=== PATIENT | female | born 1950 | race Caucasian/White ===

== ENCOUNTER 2022-05-27 13:41 | Inpatient (IN) | payer MEDICARE ==
[~2022-05-27] VITALS: Ht 172.7 cm; Wt 88.1 kg
[2022-05-27] MEDS ORDERED: ONDANSETRON HCL 4MG/2ML INJ IV STA (14:04)
[2022-05-27] MEDS ORDERED: MORPHINE SULFATE 4 MG/ML CPJ (NOT FOR IM USE) IV STA (14:04)
[2022-05-27 14:38] LABS: BASOPHILS % 0.5 % (0.0-2.0); HEMATOCRIT. 41.1 % (36.0-48.0); HEMOGLOBIN. 13.7 g/dL (12.0-16.0); LYMPHOCYTES % 26.9 % (20.0-50.0); MEAN CORPUSCULAR HEMOGLOBIN 31.7 pg (28.0-32.0); MEAN PLATELET VOLUME 8.3 fl (7.4-10.4); MONOCYTES % 9.5 % (2.0-8.0); NEUTROPHILS % 62.1 % (40.0-76.0); PLATELET 199 x1000/uL (130-400); RED BLOOD CELL COUNT 4.32 mill/uL (4.2-5.4); RED CELL DISTRIBUTION WIDTH 13.4 % (11.6-14.6)
[2022-05-27 14:47] LABS: CHLORIDE 104 mEq/L (98-107)
[2022-05-27] MEDS ORDERED: ENOXAPARIN 80MG/0.8ML SYR SUBCUT ONE (15:30)
[2022-05-27 16:09] LABS: PARTIAL THROMBOPLASTIN TIME 24.8 sec (23.4-31.0); PROTHROMBIN TIME 10.3 sec (9.6-11.0)
[2022-05-27] MEDS ORDERED: NALOXONE HCL 0.4MG/ML VIAL IV PRN (16:45)
[2022-05-27] MEDS ORDERED: CLONIDINE 0.1MG TABLET PO PRN (16:45)
[2022-05-27] MEDS ORDERED: IPRATROPIUM/ALBUTEROL 0.5-3(2.5)MG/3ML NEB HHN PRN (16:45)
[2022-05-27] MEDS ORDERED: ONDANSETRON HCL 4MG/2ML INJ IV PRN (16:45)
[2022-05-27] MEDS ORDERED: DIPHENHYDRAMINE 50MG/ML VIAL IV PRN (16:45)
[2022-05-27] MEDS ORDERED: ACETAMINOPHEN 325MG TABLET PO PRN (16:45)
[2022-05-27] MEDS ORDERED: IOHEXOL-350 100 ML BOTTLE ONE (18:12)
[2022-05-27] MEDS: ENOXAPARIN 80MG/0.8ML SYR SUBCUT SCH (18:43)
[2022-05-27 19:16] VITALS: BP 124/59
[2022-05-27 19:30] VITALS: BP 124/59
[2022-05-27] MEDS ORDERED: ATORVASTATIN CALCIUM 40MG TABLET PO SCH (21:00)
[2022-05-27 21:39] VITALS: BP 136/56
[2022-05-27] MEDS: ISOSORBIDE DINITRATE 10MG TABLET PO SCH (21:39)
[2022-05-27 23:00] VITALS: BP 117/83
[2022-05-28] VITALS (20 sets, daily range): BP systolic 105–148; BP diastolic 53–114
[2022-05-28] MEDS: MORPHINE SULFATE 2 MG/ML CPJ (NOT FOR IM USE) IV PRN ×2 (00:27→07:01)
[2022-05-28] MEDS ORDERED: FLUT1BLS INH (04:15)
[2022-05-28] MEDS ORDERED: LISI20TA31 PO (04:15)
[2022-05-28] MEDS ORDERED: DILT180C51 PO (04:15)
[2022-05-28] MEDS ORDERED: MONT-39 PO (04:15)
[2022-05-28] MEDS ORDERED: SIMV-46 PO (04:15)
[2022-05-28] MEDS ORDERED: BUPR-46 PO (04:15)
[2022-05-28] MEDS ORDERED: MAGN250T29 PO (04:18)
[2022-05-28] MEDS ORDERED: FEXO-25 PO (04:18)
[2022-05-28] MEDS ORDERED: OMEP10CA5 PO (04:18)
[2022-05-28] MEDS ORDERED: GUAI600T26 PO (04:18)
[2022-05-28] MEDS: ENOXAPARIN 80MG/0.8ML SYR SUBCUT SCH (05:00)
[2022-05-28] MEDS ORDERED: ONDANSETRON HCL 4MG/2ML INJ IV NR (07:30)
[2022-05-28] MEDS ORDERED: NITROGLYCERIN 0.4MG TABLET SL SL PRN (07:30)
[2022-05-28] MEDS: ISOSORBIDE DINITRATE 10MG TABLET PO SCH ×3 (07:51→17:52)
[2022-05-28 07:57] LABS: BASOPHILS % 0.1 % (0.0-2.0); EOSINOPHILS % 0.2 % (0.0-5.0); HEMATOCRIT. 40.8 % (36.0-48.0); HEMOGLOBIN. 13.2 g/dL (12.0-16.0); LYMPHOCYTES % 10.1 % (20.0-50.0); MEAN CORPUSCULAR HEMOGLOBIN 31.5 pg (28.0-32.0); MEAN CORPUSCULAR VOLUME 97.1 fL (81.0-99.0); MEAN PLATELET VOLUME 8.9 fl (7.4-10.4); MONOCYTES % 7.4 % (2.0-8.0); NEUTROPHILS % 82.2 % (40.0-76.0); PLATELET 168 x1000/uL (130-400); RED CELL DISTRIBUTION WIDTH 13.3 % (11.6-14.6)
[2022-05-28] MEDS ORDERED: DIPHENHYDRAMINE 50MG/ML VIAL IV NR (08:15)
[2022-05-28] MEDS ORDERED: PANTOPRAZOLE SODIUM 40 MG/VIAL IV NR (08:15)
[2022-05-28] MEDS ORDERED: VERAPAMIL HCL 2.5 MG/1 ML 2ML VIAL IV ONE (08:29)
[2022-05-28] MEDS ORDERED: LIDOCAINE HCL 1% 10 MG/ML 10ML VIAL ONE (08:29)
[2022-05-28] MEDS ORDERED: DIPHENHYDRAMINE 50MG/ML VIAL ONE (08:29)
[2022-05-28] MEDS ORDERED: HEPARIN 1000 UNITS/ML 10ML ONE (08:29)
[2022-05-28] MEDS ORDERED: MIDAZOLAM HCL 2 MG/2 ML VIAL ONE (08:29)
[2022-05-28] MEDS ORDERED: FENTANYL CITRATE/PF 50MCG/ML 2ML VIAL ONE (08:29)
[2022-05-28] MEDS ORDERED: IODIXANOL 320MG/ML 100 ML BOTTLE IV ONE (08:29)
[2022-05-28 08:30] LABS: CHLORIDE 106 mEq/L (98-107)
[2022-05-28] MEDS ORDERED: NICARDIPINE 100MCG/ML 10ML VIAL (CATH LAB) IV ONE (08:36)
[2022-05-28] MEDS ORDERED: NITROGLYCERIN 50MCG/ML 10ML VIAL (CATH LAB) IV ONE (08:36)
[2022-05-28] MEDS ORDERED: ATROPINE SULFATE 1MG/10ML SYR IV PRN (09:00)
[2022-05-28] MEDS ORDERED: ASPIRIN 81MG TABLET PO SCH (09:00)
[2022-05-28] MEDS ORDERED: LORAZEPAM 1MG TABLET PO PRN (10:15)
[2022-05-28] MEDS ORDERED: ASPIRIN 81MG TABLET PO NR (10:15)
[2022-05-28] MEDS: METOPROLOL SUCCINATE 50MG ER TABLET PO SCH (11:11)
[2022-05-28] MEDS: OMEPRAZOLE 20MG CAPSULE EXTENDED RELEASE PO SCH (13:52)
[2022-05-28] MEDS: LIDOCAINE 5% PATCH TOP SCH (17:53)
[2022-05-28] MEDS ORDERED: ATORVASTATIN CALCIUM 40MG TABLET PO SCH (21:00)
[2022-05-29] VITALS (8 sets, daily range): BP systolic 98–126; BP diastolic 52–73
[2022-05-29 07:08] LABS: BASOPHILS % 0.3 % (0.0-2.0); EOSINOPHILS % 0.4 % (0.0-5.0); HEMATOCRIT. 40.9 % (36.0-48.0); HEMOGLOBIN. 13.7 g/dL (12.0-16.0); LYMPHOCYTES % 17.2 % (20.0-50.0); MEAN CORPUSCULAR HEMOGLOBIN 31.9 pg (28.0-32.0); MEAN CORPUSCULAR VOLUME 95.2 fL (81.0-99.0); MEAN PLATELET VOLUME 9.7 fl (7.4-10.4); MONOCYTES % 13.7 % (2.0-8.0); NEUTROPHILS % 68.4 % (40.0-76.0); PLATELET 206 x1000/uL (130-400); RED BLOOD CELL COUNT 4.29 mill/uL (4.2-5.4); RED CELL DISTRIBUTION WIDTH 13.4 % (11.6-14.6)
[2022-05-29] MEDS ORDERED: OMEPRAZOLE 20MG CAPSULE EXTENDED RELEASE PO SCH (07:30)
[2022-05-29] MEDS: OMEPRAZOLE 20MG CAPSULE EXTENDED RELEASE PO SCH (08:15)
[2022-05-29] MEDS: ISOSORBIDE DINITRATE 10MG TABLET PO SCH ×2 (08:15→13:33)
[2022-05-29] MEDS: LIDOCAINE 5% PATCH TOP SCH (08:16)
[2022-05-29] MEDS: METOPROLOL SUCCINATE 50MG ER TABLET PO SCH (08:16)
[2022-05-29 08:33] LABS: CHLORIDE 103 mEq/L (98-107)
[2022-05-29 08:42] LABS: HDL CHOLESTEROL 60 mg/dL (40-59); LDL CHOLESTEROL 74 mg/dL (5-100)
[2022-05-29] MEDS ORDERED: ASPIRIN 325MG TABLET PO SCH (09:00)
[2022-05-29] MEDS ORDERED: LOSARTAN POTASSIUM 25 MG TABLET PO SCH (09:00)
[2022-05-29] MEDS ORDERED: SERT25TA74 MT (13:18)
[2022-05-29] MEDS ORDERED: LORA-249 MT (13:18)
[2022-05-29] MEDS ORDERED: LOSA25TA3 PO (13:18)
[2022-05-29] MEDS ORDERED: ISOS10TA2 PO (13:18)
[2022-05-29] MEDS ORDERED: METO-385 PO (13:18)
[2022-05-29] MEDS ORDERED: LIDO700A30 TOP (13:18)
[2022-05-29] MEDS ORDERED: FURO20TA4 MT (13:18)
[2022-05-29] MEDS ORDERED: FAMOTIDINE 20MG TABLET PO SCH (17:00)
== END 2022-05-29 15:20 | disposition home or self-care (01) | DRG 280 ==
LOC: ER 13:41 → ENRESERV 18:05 → 5EST 21:05
PROVIDERS: ADMIT Internal Medicine; ATTEND Internal Medicine
PROC: 4A023N7 Measurement of Cardiac Sampling and Pressure, Left Heart, Percutaneous Approach (ICD-10-PCS; principal; 2022-05-28)
PROC: B2151ZZ Fluoroscopy of Left Heart using Low Osmolar Contrast (ICD-10-PCS; 2022-05-28)
PROC: B310YZZ Fluoroscopy of Thoracic Aorta using Other Contrast (ICD-10-PCS; 2022-05-28)
PROC: B2111ZZ Fluoroscopy of Multiple Coronary Arteries using Low Osmolar Contrast (ICD-10-PCS; 2022-05-28)
DX: I21.A1 Myocardial infarction type 2 (principal); I50.21 Acute systolic (congestive) heart failure; I11.0 Hypertensive heart disease with heart failure; Z20.822 Contact with and (suspected) exposure to COVID-19; F17.210 Nicotine dependence, cigarettes, uncomplicated; E11.9 Type 2 diabetes mellitus without complications; Z82.49 Family history of ischemic heart disease and other diseases of the circulatory system; Z95.0 Presence of cardiac pacemaker; Z86.718 Personal history of other venous thrombosis and embolism; Z88.2 Allergy status to sulfonamides
CPT/HCPCS: 36415; 71045; 71275; 80048; 80053; 80061; 83036; 83880; 84484; 85025; 85379; 87426; 93005; 93306; 93458; 93970; 94640; 99291; C1769; C1887; C1893; C9113; J1200; J1644; J1650; J2250; J2270; J2405; J3010; J3490; Q9967